=== PATIENT | female | born 1940 | race Hispanic/Latino ===

== ENCOUNTER 2018-02-25 11:11 | Outpatient (CLI) | payer MEDICARE ==
--- NOTE | 2018-02-26 11:21 | Cat Scan Report ---
FINAL REPORT EXAM: CT ABDOMEN PELVIS WO CON HISTORY: BREAST CANCER TECHNIQUE: CT abdomen and pelvis performed. Images extend from diaphragm to pubic symphysis. No intravenous contrast was administered. Oral contrast was administered. Coronal and sagittal reformatted images were obtained. PRIORS: None. FINDINGS: There is some hazy ground-glass infiltration at the lung bases. There are coronary artery atherosclerotic calcifications. There is cholelithiasis. Within the limitations of a non-enhanced study, the visualized liver, spleen, pancreas, adrenal glands and kidneys demonstrate no significant abnormalities. There is a duodenal diverticulum. There are aortoiliac atherosclerotic calcifications. There is no abdominal aortic aneurysm. There is no evidence of intestinal obstruction. The appendix is normal. There are no abnormal fluid collections seen. There is no free intraperitoneal air. There is diverticulosis involving the sigmoid colon, but there is no evidence of acute diverticulitis. The bladder is unremarkable. There is dextroconvex lumbar scoliosis and [id number] multilevel degenerative change in the visualized spine. IMPRESSION: Cholelithiasis. Sigmoid diverticulosis. No evidence for acute diverticulitis. Coronary and aortic atherosclerotic calcifications. Duodenal diverticulum. Dextroconvex lumbar scoliosis.
--- NOTE | 2018-02-26 11:27 | Cat Scan Report ---
FINAL REPORT EXAM: CT CHEST WO CON HISTORY: BREAST CANCER TECHNIQUE: A CT of the chest was performed from thoracic inlet to diaphragm. No IV contrast administered. Coronal and sagittal reformatted images were obtained. PRIORS: None. FINDINGS: There are atherosclerotic calcifications involving the thoracic aorta. There are coronary artery atherosclerotic calcifications. There is no significant mediastinal or hilar mass seen. There are no pleural effusions seen. There is a pacemaker. Streak artifact emanates from pacer pack and leads. There is no pneumothorax seen. There are no pleural effusions seen. There is a nonspecific right lower lobe nodule posteriorly which measures approximately 4 mm. There is no acute infiltrate. IMPRESSION: There is a 4 mm nodule in the right lower lobe. If stability cannot be established by comparison to old studies, recommend followup in 12 months. Coronary and aortic atherosclerotic calcifications.
== END 2018-02-25 11:12 | disposition home or self-care (01) ==
LOC: NM 11:11
DX: C50.311 Malignant neoplasm of lower-inner quadrant of right female breast (principal); K57.10 Diverticulosis of small intestine without perforation or abscess without bleeding; K80.20 Calculus of gallbladder without cholecystitis without obstruction; K57.30 Diverticulosis of large intestine without perforation or abscess without bleeding; M89.9 Disorder of bone, unspecified; I25.10 Atherosclerotic heart disease of native coronary artery without angina pectoris; I70.0 Atherosclerosis of aorta; R91.1 Solitary pulmonary nodule; M41.86 Other forms of scoliosis, lumbar region; M47.896 Other spondylosis, lumbar region; Z95.0 Presence of cardiac pacemaker
CPT/HCPCS: 71250; 74176; 78306; A9503

== ENCOUNTER 2018-03-23 07:38 | Outpatient (CLI) | payer MEDICARE ==
--- NOTE | 2018-03-23 08:31 | Ultrasound Report ---
ULTRASOUND ABDOMEN LIMITED: TECHNIQUE: Transabdominal ultrasound with color Doppler interrogation. HISTORY: Gallstones. COMPARISON: none. FINDINGS: LIVER: Normal. BILIARY SYSTEM: There are several small shadowing gallstones within the gallbladder. No wall thickening, distention or pericholecystic fluid. The CBD measures 4.4 mm. PANCREAS: Normal. RIGHT KIDNEY: Normal. PROXIMAL AORTA: Normal. ASCITES: None. IMPRESSION: Cholelithiasis.
== END 2018-03-23 07:39 | disposition home or self-care (01) ==
LOC: US 07:38
PROVIDERS: ATTEND Internal Medicine
DX: K80.20 Calculus of gallbladder without cholecystitis without obstruction (principal)
CPT/HCPCS: 76705

== ENCOUNTER → 2018-06-22 | Day surgery (SDC) | payer MEDICARE ==
[~2018-06-22] MED LIST: DIPRIVAN 10 MG/ML IV ONE; NACL 0.9% 1000 ML 1,000 ML IV SCH; WATER FOR IRRIG STERILE IR ONE
--- NOTE | 2018-06-22 11:05 | Short Stay Summary ---
Short Stay Documentation Date of service: 06/22/18 Narrative H&P: The patient presents for EGD to evaluate epigastric pain and weight loss. - History Past Medical History: CAD, cancer (Breast cancer), other (gallstones) Past Surgical History: CABG, hysterectomy, Other (breast cancer, defibrillator) Social history: no significant social history, lives with family, no smoking, no alcohol abuse - Allergies and Medications Current Medications: Allergies Sulfa (Sulfonamide Antibiotics) Allergy (Verified 03/06/15 13:02) Nausea iv dye Allergy (Uncoded 02/16/15 10:16) Swelling Home Medications Medication Instructions Recorded Confirmed Last Taken Type Atorvastatin [Lipitor] 80 mg PO QHS 02/16/15 06/22/18 06/21/18 20:00 History Clopidogrel Bisulfate [Plavix] 75 mg PO DAILY 02/16/15 06/22/18 06/11/18 09:00 History Ezetimibe [Zetia] 10 mg PO QHS 02/16/15 06/22/18 06/21/18 21:00 History Lansoprazole (Nf) [Prevacid (Nf)] 30 mg PO QDAY 02/16/15 06/22/18 06/21/18 17: 00 History Metoprolol [Lopressor TAB] 50 mg PO BID 02/16/15 06/22/18 06/22/18 06:30 History Dorzolamide HCl/Timolol Maleat 1 drop OP BID 04/30/15 06/22/18 06/21/18 20:00 History [Dorzolamide-Timolol Eye Drops] Latanoprost 0.005% 1 drop OP QPM 04/30/15 06/22/18 06/21/18 21:00 History Lisinopril/Hydrochlorothiazide 1 each PO QDAY 05/02/15 06/22/18 06/21/18 17:00 History [Zestoretic 20-12.5 mg] ALPRAZolam [Alprazolam] 1 tab PO QHS 07/24/15 06/22/18 06/15/18 22:00 History Anastrozole (Nf) 1 mg PO DAILY 07/24/15 06/22/18 07/26/15 08:00 History Escitalopram 10 mg PO DAILY 07/24/15 06/22/18 07/26/15 08:00 History Estradiol 1 tab PO DAILY 07/24/15 06/22/18 06/25/16 History Active Medications Sodium Chloride (Nacl 0.9% 1000 Ml) 1,000 mls @ 50 mls/hr IV DIRECT GABRIELLA Last Admin: 06/22/18 10:33 Dose: 50 mls/hr - Physical exam General appearance: no acute distress, well-nourished, other (thin) Integumentary: no rash, no growths, no abnormal pigmentation HEENT: Atraumatic, PERRLA, EOMI, Mucous membr. moist/pink Lungs: Clear to auscultation, Normal air movement Breasts: deferred Heart: Regular rate, Normal S1, Normal S2, No murmurs Gastrointestinal: normoactive bowel sounds, no tenderness, no distended, no masses, no organomegaly, no obese Female Genitourinary: deferred Rectal Exam: deferred Extremities: no ischemia, pulses intact, pulses symmetrical, No edema, normal temperature, normal color, Full ROM Neurological: Normal gait, Normal speech, Strength at 5/5 X4 ext, Normal tone, Sensation intact, Cranial nerves 3-12 NL - Brief post op/procedure progress note Date of procedure: 06/22/18 Procedure: see dictated report Estimated blood loss: none Pathology: none Condition: stable - Disposition Condition at discharge: Good Disposition: DC-01 TO HOME OR SELFCARE - Discharge Diagnoses (1) Weight loss Status: Acute (2) Epigastric abdominal pain Status: Acute Short Stay Discharge Plan Activity: other (no driving for 24 hours) Weight Bearing Status: Weight Bear as Tolerated Diet: regular Follow up with: JOSE KRAUSE MD [Primary Care Provider] - 7 Days
--- NOTE | 2018-06-22 11:08 | Operative Report ---
Operative Report Operative Report: Date of procedure: 06/22/2018 Procedure: Esophagogastroduodenoscopy Preprocedure diagnosis: Epigastric pain and weight loss. Post procedure diagnosis: Small hiatus hernia, otherwise normal-appearing upper digestive tract. Endoscopist: Dr. Wong Anesthesia: Monitored anesthesia care per anesthesia department Medications: Propofol per anesthesia Estimated blood loss: 0 After careful discussion of the nature and purpose of the procedure as well as details the technique risks benefits and alternatives consent was obtained. The patient was placed in the left lateral decubitus position and medicated per anesthesia. The tip of the [employer] EQ 570 video scope was passed per orum under direct vision into the esophagus and advanced into the stomach and descending duodenum. The descending duodenum the duodenal bulb and pylorus were symmetrical and normal. The scope was withdrawn into the stomach and the stomach then gently insufflated with air. The antrum was normal. The stomach was further insufflated and the scope was then retroflexed and partially withdrawn. The cardia, fundus, and body of the stomach were within normal limits and easily distensible.The scope was then withdrawn in the forward position. The esophagogastric junction was at 37 cm. A small hiatus hernia was present. The esophageal body was normal throughout. The procedure was was well tolerated and the patient was observed in recovery. Impressions: Small hiatus hernia, otherwise normal-appearing upper digestive tract. Plan: Consider repeat CT scan with contrast in light of her history of breast cancer to assess for other causes of unexplained weight loss. Electronically signed: Cullen Wong MD
--- NOTE | 2018-06-22 11:11 | Anesthesia Consultation ---
Anesthesia Consult and Med Hx Date of service: 06/22/18 - Airway Anesthetic Teeth Evaluation: Edentulous ROM Head & Neck: Adequate Mental/Hyoid Distance: Adequate Mallampati Class: Class I Intubation Access Assessment: Good - Pulmonary Exam CTA: Yes - Cardiac Exam Cardiac Exam: RRR - Pre-Operative Health Status ASA Pre-Surgery Classification: ASA3 Proposed Anesthetic Plan: MAC - Pulmonary Hx Sleep Apnea: No - Cardiovascular System Hx Hypertension: Yes Hx Coronary Artery Disease: Yes Hx Heart Attack/AMI: Yes (1992 APPROX (CABG)) Hx Angina: No Hx Cardia Arrhythmia: Yes Hx Pacemaker: Yes Hx Internal Defibrillator: Yes - Central Nervous System CVA: Yes (2008) - Gastrointestinal Hx Ulcer: Yes Hx Gastroesophageal Reflux Disease: Yes - Other Systems Hx Cancer: Yes (right breast ca s/p mastectomy )
--- NOTE | 2018-06-22 11:12 | Anesthesia Day of Surgery ---
Anesthesia Day of Surgery - Day of Surgery Patient Examined: Yes Patient H&P Reviewed: Yes Patient is NPO: Yes
[2018-06-22 11:35] VITALS: BP 133/57
--- NOTE | 2018-06-22 11:43 | Post Anesthesia Evaluation ---
- Post Anesthesia Evaluation Patient Participated: Yes Airway Patent: Yes Stable Respiratory Function: Yes Nausea/Vomiting: No Temp > 96.8F: Yes Pain Manageable: Yes Adequeate Hydration: Yes Anesthesia Complications: No
== END | disposition home or self-care (01) ==
LOC: GIO 09:31
PROVIDERS: ATTEND Internal Medicine Gastroenterology
DX: K44.9 Diaphragmatic hernia without obstruction or gangrene (principal); K21.9 Gastro-esophageal reflux disease without esophagitis; I10 Essential (primary) hypertension; E78.00 Pure hypercholesterolemia, unspecified; M19.90 Unspecified osteoarthritis, unspecified site; I25.10 Atherosclerotic heart disease of native coronary artery without angina pectoris; I25.2 Old myocardial infarction; Z79.899 Other long term (current) drug therapy; Z91.041 Radiographic dye allergy status; Z88.2 Allergy status to sulfonamides; Z90.710 Acquired absence of both cervix and uterus; Z90.11 Acquired absence of right breast and nipple; Z95.1 Presence of aortocoronary bypass graft; Z95.810 Presence of automatic (implantable) cardiac defibrillator; Z85.3 Personal history of malignant neoplasm of breast; Z86.73 Personal history of transient ischemic attack (TIA), and cerebral infarction without residual deficits; Z80.3 Family history of malignant neoplasm of breast
CPT/HCPCS: 43235; J2704; J7030

== ENCOUNTER 2018-07-19 08:02 | Outpatient (CLI) | payer MEDICARE ==
--- NOTE | 2018-07-19 11:16 | Nuclear Medicine Report ---
HEPATOBILIARY SCAN: History: Calculus of gallbladder without cholecystitis without obstruction. Comparison: Right upper quadrant ultrasound dated 03/23/18. The previous ultrasound demonstrated several small gallstones within the gallbladder. Following the injection of the radionuclide, serial scanning was obtained over the right upper quadrant. Initial imaging of the liver demonstrates a relatively normal activity pattern. Progressive concentration of the radionuclide in the bile ducts, with filling of both the gallbladder and small bowel, is identified within a normal time period. IMPRESSION: Unremarkable HIDA scan. The cystic duct is patent. Normal biliary to bowel transit time.
== END 2018-07-19 08:03 | disposition home or self-care (01) ==
LOC: NM 08:02
PROVIDERS: ATTEND Surgery
DX: Q44.6 Cystic disease of liver (principal); I10 Essential (primary) hypertension; I25.10 Atherosclerotic heart disease of native coronary artery without angina pectoris
CPT/HCPCS: 78226; A9537

== ENCOUNTER 2018-07-26 08:49 | Outpatient (CLI) | payer MEDICARE ==
--- NOTE | 2018-07-26 11:37 | Nuclear Medicine Report ---
NUCLEAR MEDICINE GASTRIC EMPTYING SCAN HISTORY: K80.20. FINDINGS: Anterior abdominal images were obtained for 90 minutes after ingestion of 1 mCi of technetium 99m sulfur cold in oatmeal. Half life for gastric emptying measures 62 minutes. No scintigraphic evidence for reflux disease. IMPRESSION: Normal gastric emptying.
== END 2018-07-26 08:50 | disposition home or self-care (01) ==
LOC: NM 08:49
PROVIDERS: ATTEND Surgery
DX: K80.20 Calculus of gallbladder without cholecystitis without obstruction (principal); I10 Essential (primary) hypertension; I25.10 Atherosclerotic heart disease of native coronary artery without angina pectoris; E78.00 Pure hypercholesterolemia, unspecified; K21.9 Gastro-esophageal reflux disease without esophagitis; M19.90 Unspecified osteoarthritis, unspecified site; Z90.710 Acquired absence of both cervix and uterus; Z86.73 Personal history of transient ischemic attack (TIA), and cerebral infarction without residual deficits
CPT/HCPCS: 78264; A9541

== ENCOUNTER 2019-08-30 09:19 | Outpatient (CLI) | payer MEDICARE ==
--- NOTE | 2019-08-30 10:30 | XRay Report ---
LUMBOSACRAL SPINE, 3 VIEWS INDICATION: M54.5)Low Back Pain.. COMPARISON: 10/07/2018 IMPRESSION: Severe dextroscoliosis of the lumbar spine is demonstrated. There is 1 cm right lateral subluxation of L3 with respect to L4. Severe multilevel degenerative disc disease and facet arthropat hy are identified. No evidence for compression deformity or bone lesion. The visualized sacrum and SI joints are unremarkable. Signer Name: Jenaro Trujillo Jr, MD Signed: 08/30/2019 10:26 AM Workstation Name: [id number]
--- NOTE | 2019-08-30 11:21 | Cat Scan Report ---
CT ABDOMEN AND PELVIS WITHOUT CONTRAST HISTORY: R10.9)Unspecified abdominal pain COMPARISON: 02/25/2018 TECHNIQUE: Axial CT images were obtained through the abdomen and pelvis without IV contrast. Sagittal and coronal reformatted images. All CT scans at this location are performed using CT dose reduction for ALARA by means of automated exposure control. FINDINGS: CT ABDOMEN: Lung Bases: Clear. Liver: No significant abnormality. Biliary: There are multiple calcified gallstones in the fundus of the gallbladder. No biliary dilatat ion or inflammation. Spleen: No significant abnormality. Unenlarged. Pancreas: No significant abnormality. Adrenals: No significant abnormality. Kidneys: No significant abnormality. Lymphatics: No lymphadenopathy. Vasculature: Moderate to severe diffuse aortic and iliac artery calcifications. No aneurysm. Bowel/Peritoneum: There are scattered diverticula in the sigmoid colon. No evidence for acute inflamm ation, obstruction or obvious focal mass. Normal appendix. No free fluid, bowel wall thickening or fr ee air. CT PELVIS: : Hysterectomy changes are suspected. No adnexal abnormality. The bladder and distal ureters are wi thin normal limits. Osseous Structures: Osteopenia. Severe dextrocurvature to the thoracolumbar spine with degenerative c hanges. No fracture or suspicious bony lesion. Additional Findings: None IMPRESSION: No acute process. Cholelithiasis. Diverticulosis of the sigmoid colon. Diffuse atherosclerotic disease throughout the aorta and iliac arteries. Hysterectomy. Scoliosis with degenerative changes. Osteopenia. Signer Name: Jenaro Trujillo Jr, MD Signed: 08/30/2019 11:16 AM Workstation Name: [id number]
--- NOTE | 2019-08-30 13:48 | Mammography Report ---
BONE DEXA. History: AGE RELATED OSTEOPOROSIS WO CURRENT PATHOLOGICAL FX. History of breast cancer. Procedure: 3 site bone densitometry performed on a Hologic scanner. Comparison: None Findings: The BMD of the lumbar spine is 0.960 gm/cm2 with a T-score of -0.8 and a Z-score of +1.7 . The bone mineral density (BMD) of the left femoral neck is 0.589 gm/cm2 with a T-score of -2.3 and a Z-score of -0.2. The BMD of the total left hip is 0.774 gm/cm2 with a T-score of -1.4 and a Z-score of +0.5. IMPRESSION: WHO Classification: Normal with average fracture risk based on lumbar spine and total left hip measur ements. WHO classification: Osteopenia with increased fracture risk based on left femoral neck measurements. The FRAX 10 year fracture probability for a major osteoporotic fracture is 14%. The FRAX 10 year fracture probability for hip fracture is 4.4%. . Note:FRAX version 3.01. Fracture probability calculated for an untreated patient. Fracture probabilit y may be lower if the patient has received treatment. RECOMMENDATION: Clinical correlation and routine screening. Definitions: BMD = Bone Mineral Density T score = BMD related to mean peak bone mass of young adult (Bessie expressed an standard deviation) Z score = Age-matched BMD expressed in SD World health organization (WHO) diagnostic criteria: Normal: T score greater than -1 SD. Osteopenia: T score between - SD and -2.4 SD. Osteoporosis: T score -2.5 SD or below Note: BMD is not the only risk factor for fracture; also consider factors such as the patient's age, risk of falling, previous osteoporotic fracture, family history of osteoporotic fractures, smoking st atus and low body weight. All treatment decisions require clinical judgment and consideration of individual patient factors inc luding patient preferences, comorbidities, previous drug use and risk factors not captured in the FRA X model (e.g. Frailty, falls, vitamin D deficiency, increased bone turnover, interval significant dec line in BMD). A more detailed DEXA Bone Densitometry report is available upon request. Signer Name: Javier Pat MD Signed: 08/30/2019 1:44 PM Workstation Name: [id number]
== END 2019-08-30 09:20 | disposition home or self-care (01) ==
LOC: CT 09:19
PROVIDERS: ATTEND Internal Medicine
DX: K80.20 Calculus of gallbladder without cholecystitis without obstruction (principal); K57.30 Diverticulosis of large intestine without perforation or abscess without bleeding; M51.36 Other intervertebral disc degeneration, lumbar region; M41.86 Other forms of scoliosis, lumbar region; I70.0 Atherosclerosis of aorta; M43.8X5 Other specified deforming dorsopathies, thoracolumbar region; M85.88 Other specified disorders of bone density and structure, other site; M81.0 Age-related osteoporosis without current pathological fracture; I25.10 Atherosclerotic heart disease of native coronary artery without angina pectoris; I10 Essential (primary) hypertension; E78.5 Hyperlipidemia, unspecified; E78.00 Pure hypercholesterolemia, unspecified; K21.9 Gastro-esophageal reflux disease without esophagitis; Z95.1 Presence of aortocoronary bypass graft; Z85.3 Personal history of malignant neoplasm of breast; Z95.810 Presence of automatic (implantable) cardiac defibrillator
CPT/HCPCS: 72100; 74176; 77080

== ENCOUNTER 2020-05-28 07:34 | Outpatient (CLI) | payer MEDICARE ==
--- NOTE | 2020-05-28 12:08 | Nuclear Medicine Report ---
NUCLEAR MEDICINE BONE SCAN, WHOLE BODY INDICATION: M54.6 PAIN IN THORACIC SPINE/M54.5 LOW BACK PAIN. TECHNIQUE: 26 mCi of Tc-99m MDP were injected IV. Whole body images were obtained. COMPARISON: Bone scan dated 02/25/2018. CT abdomen pelvis without contrast dated 08/30/2019. FINDINGS: Skeletal Structures: Fairly symmetric, likely degenerative uptake is present involving the shoulders , sternoclavicular joints, spine, knees and feet. Skeletal Lesions: None. Soft Tissues: Normal. Kidneys: Normal, symmetric activity. Additional Findings: Scoliosis. IMPRESSION: Degenerative findings as described above appear relatively stable since 02/25/2018 exam. No evidence for osseous metastasis on bone scan.. Signer Name: Jenaro Trujillo Jr, MD Signed: 05/28/2020 12:04 PM Workstation Name: [id number]
== END 2020-05-28 07:35 | disposition home or self-care (01) ==
LOC: NM 07:34
PROVIDERS: ATTEND Internal Medicine Gastroenterology
DX: M41.87 Other forms of scoliosis, lumbosacral region (principal); M47.815 Spondylosis without myelopathy or radiculopathy, thoracolumbar region
CPT/HCPCS: 78306; A9503

== ENCOUNTER 2020-06-13 11:06 | Outpatient (CLI) | payer MEDICARE ==
--- NOTE | 2020-06-13 13:44 | Cat Scan Report ---
CT THORACIC SPINE WITHOUT CONTRAST CT LUMBAR SPINE WITHOUT CONTRAST INDICATION: Back pain. TECHNIQUE: Axial imaging performed through the thoracic and lumbar spine without the use of contrast . Sagittal and coronal reconstructed images were also reviewed. All CT scans at this location are p erformed using CT dose reduction for ALARA by means of automated exposure control. COMPARISON: X-rays dated 10/07/2018 FINDINGS: Mild osteopenia is evident. There is severe dextrocurvature of the thoracolumbar spine measuring up t o 50 degrees with apex near the L2 level. Moderate to severe discogenic DJD is noted throughout the l ower thoracic and upper lumbar spine spanning from approximately T10-L4. There is normal alignment on the sagittal reconstructed images. There is 7-8 mm right lateral subluxation of L3 with respect to L 4 on the coronal images. The remaining thoracolumbar vertebra are normal in alignment. There is no ev idence for compression deformity, displaced fracture or bone lesion. The posterior elements are in ap propriate relationship. Moderate facet arthropathy is noted in the lower lumbar spine. The central canal appears normal caliber. No central canal stenosis is identified. No high-grade neur al foraminal stenosis is appreciated. The posterior ribs are intact. The paraspinal soft tissues are unremarkable. IMPRESSION: Severe scoliosis near the thoracolumbar junction as described. Moderate multilevel degenerative rosales e. No evidence for fracture or bone lesion. Osteopenia. Signer Name: Jenaro Trujillo Jr, MD Signed: 06/13/2020 1:40 PM Workstation Name: [id number]
== END 2020-06-13 11:07 | disposition home or self-care (01) ==
LOC: CT 11:06
PROVIDERS: ATTEND Internal Medicine Gastroenterology
DX: M43.8X5 Other specified deforming dorsopathies, thoracolumbar region (principal); M85.88 Other specified disorders of bone density and structure, other site; M47.895 Other spondylosis, thoracolumbar region; M41.85 Other forms of scoliosis, thoracolumbar region
CPT/HCPCS: 72128; 72131

== ENCOUNTER 2020-07-18 12:13 | Outpatient (CLI) | payer MEDICARE ==
--- NOTE | 2020-07-18 13:24 | Ultrasound Report ---
EXAMINATION: Left Limited Breast Ultrasound, 07/18/2020 INDICATION: BREAST LUMP/ PERSONAL HX OF BREAST CA. Patient presents for evaluation of an area of palpable concern in the left breast felt by her doctor, patient is unable to feel this area. COMPARISON: Left diagnostic mammogram 06/21/2020 FINDINGS: Targeted ultrasound evaluation was performed of the area of interest. Targeted ultrasound w as performed of the 12 through 6:00 position of the left breast in the area that the patient indicate s her doctor felt a lump. No suspicious cystic or solid lesion is identified. IMPRESSION: 1. No sonographic abnormality to account for the area of palpable concern in the left breast, therefo re clinical correlation is recommended. Follow up recommendation: Routine yearly BI-RADS Category 1: Negative. Signer Name: Anne Marie Zavala MD Signed: 07/18/2020 1:20 PM Workstation Name: [id number]
== END 2020-07-18 12:14 | disposition home or self-care (01) ==
LOC: SPVWC 12:13
PROVIDERS: ATTEND Surgery
DX: N63.21 Unspecified lump in the left breast, upper outer quadrant (principal); Z85.3 Personal history of malignant neoplasm of breast